=== PATIENT | female | born 1995 | race Caucasian/White ===

== ENCOUNTER 2016-12-05 09:00 | Outpatient (RCR) | payer OTHER, BC | END 2016-12-06 | disposition home or self-care (01) | LOC: WSST | DX: F07.81 Postconcussional syndrome (principal) ==

== ENCOUNTER → 2017-03-07 | Outpatient (RCR) | payer OTHER, BC | END | disposition home or self-care (01) | LOC: WSST | DX: F07.81 Postconcussional syndrome (principal) ==

== ENCOUNTER 2017-03-09 14:22 | Outpatient (RCR) | payer OTHER, BC | END 2017-03-15 14:22 | disposition home or self-care (01) | LOC: WSST 14:22 | DX: F07.81 Postconcussional syndrome (principal) ==